=== PATIENT | male | born 2000 | race Caucasian/White ===

== ENCOUNTER 2020-09-28 22:41 | Emergency (ER) | payer OTHER ==
--- NOTE | 2020-09-28 22:45 | NUR ---
CALLED FOR TRIAGE, NO ANSWER
--- NOTE | 2020-09-28 22:50 | NUR ---
CALLED FOR TRIAGE, NO ANSWER
--- NOTE | 2020-09-28 22:55 | NUR ---
CALLED FOR TRIAGE, NO ANSWER
== END 2020-09-28 23:50 | disposition home or self-care (01) ==
LOC: ER 22:46
DX: Z53.21 Procedure and treatment not carried out due to patient leaving prior to being seen by health care provider (principal)